=== PATIENT | male | born 1950 | race Caucasian/White ===

== ENCOUNTER 2017-08-18 20:14 | Inpatient (IN) | payer OTHER, MEDICARE ==
[~2017-08-18] VITALS: Ht 167.6 cm; Wt 75.9 kg
[2017-08-18] MEDS ORDERED: LORazepam 2 MG/ML, 1ML IVPush PRN (20:30)
[2017-08-18] MEDS ORDERED: PLEASE ENTER ALLERGIES MC SCH (20:30)
[2017-08-18 20:40] LABS: BASOPHILS # (AUTO) 0.04 x10^3/uL (0-0.1); BASOPHILS % (AUTO) 0 % (0-1); EOSINOPHILS # (AUTO) 0.02 x10^3/uL (0-0.4); EOSINOPHILS % (AUTO) 0 % (1-7); LYMPHOCYTES # (AUTO) 0.52 x10^3/uL (1-3.4); LYMPHOCYTES % (AUTO) 5 % (22-44); MD NO; MEAN CORPUSCULAR HEMOGLOBIN 32.2 pg (27.5-34.5); MEAN CORPUSCULAR HGB CONC 33.9 g/dL (33.2-36.2); MEAN PLATELET VOLUME 8.9 fL (7.4-10.4); MONOCYTES # (AUTO) 0.32 x10^3/uL (0.2-0.8); MONOCYTES % (AUTO) 3 % (2-9); NEUTROPHILS # (AUTO) 10.78 x10^3/uL (1.8-6.8); NEUTROPHILS % (AUTO) 92 % (42-75); PLATELET COUNT 193 x10^3/uL (130-400); RED BLOOD COUNT 5.22 x10^6/uL (4.38-5.82); RED CELL DISTRIBUTION WIDTH 13.2 % (9.4-14.8)
[2017-08-18 20:51] LABS: ALANINE AMINOTRANSFERASE 21 U/L (12-78); ALBUMIN 4.3 g/dL (3.4-5.0); ANION GAP 11 mmol/L (5-15); CALCIUM 8.7 mg/dL (8.5-10.1); CHLORIDE 108 mmol/L (98-107); CREATININE 1.21 mg/dL (0.7-1.3)
[2017-08-18 20:53] LABS: ALKALINE PHOSPHATASE 65 U/L (45-117); BILIRUBIN,TOTAL 1.3 mg/dL (0.2-1.0); TOTAL PROTEIN 8.3 g/dL (6.4-8.2)
[2017-08-18 20:54] LABS: INTERNATIONAL NORMALIZED RATIO 1.04 (0.93-1.1); PROTHROMBIN TIME 10.7 Seconds (9.6-11.5)
[2017-08-18] MEDS ORDERED: LORazepam 2 MG/ML, 1ML ONE (20:55)
[2017-08-18] MEDS ORDERED: SILD20TA2 PO (21:30)
[2017-08-18] MEDS ORDERED: OMEP-110 PO (21:30)
[2017-08-18] MEDS ORDERED: LEVETIRACETAM 1,000 MG in SODIUM CHLORIDE 0.9% 100 ML IV ONE ×2 (21:30→22:00)
[2017-08-18] MEDS ORDERED: FENO134C PO (21:30)
[2017-08-18] MEDS ORDERED: LOSA100T6 PO (21:30)
[2017-08-18] MEDS ORDERED: CARV3.122 PO (21:30)
[2017-08-18] MEDS ORDERED: LEVE500T8 PO (21:30)
[2017-08-18] MEDS ORDERED: ACETAMINOPHEN 325 MG TABLET PO PRN (22:30)
[2017-08-18] MEDS ORDERED: BISACODYL 10 MG SUPP PR PRN (22:30)
[2017-08-18] MEDS: CARVEDILOL 3.125 MG TABLET PO SCH (22:30)
[2017-08-18] MEDS ORDERED: POLYETHYLENE GLYCOL 17 GM PACKET PO PRN (22:30)
[2017-08-18] MEDS ORDERED: ONDANSETRON ODT 4 MG PO PRN (22:30)
[2017-08-18] MEDS: HEPARIN 5,000 UNITS/ML, 1ML SQ SCH (22:30)
[2017-08-18] MEDS: SODIUM CHLORIDE FLUSH 10ML SYR IVF SCH (23:24)
[2017-08-19 00:52] LABS: MICROSCOPIC INDICATED
[2017-08-19 00:59] LABS: CULTURE INDICATED? NO
[2017-08-19 06:12] LABS: BASOPHILS # (AUTO) 0.01 x10^3/uL (0-0.1); BASOPHILS % (AUTO) 0 % (0-1); EOSINOPHILS % (AUTO) 0 % (1-7); LYMPHOCYTES # (AUTO) 0.33 x10^3/uL (1-3.4); LYMPHOCYTES % (AUTO) 2 % (22-44); MD NO; MEAN CORPUSCULAR HEMOGLOBIN 32.2 pg (27.5-34.5); MEAN CORPUSCULAR VOLUME 94.8 fL (81-97); MONOCYTES # (AUTO) 0.72 x10^3/uL (0.2-0.8); MONOCYTES % (AUTO) 5 % (2-9); NEUTROPHILS # (AUTO) 14.86 x10^3/uL (1.8-6.8); NEUTROPHILS % (AUTO) 93 % (42-75); PLATELET COUNT 160 x10^3/uL (130-400); RED BLOOD COUNT 5.07 x10^6/uL (4.38-5.82); RED CELL DISTRIBUTION WIDTH 13.1 % (9.4-14.8)
[2017-08-19 06:23] LABS: ALBUMIN 3.7 g/dL (3.4-5.0); ANION GAP 8 mmol/L (5-15); CALCIUM 8.1 mg/dL (8.5-10.1); CHLORIDE 110 mmol/L (98-107)
[2017-08-19 06:27] LABS: ALANINE AMINOTRANSFERASE 19 U/L (12-78); ALKALINE PHOSPHATASE 53 U/L (45-117); BILIRUBIN,TOTAL 1.8 mg/dL (0.2-1.0); TOTAL PROTEIN 7.1 g/dL (6.4-8.2)
[2017-08-19] MEDS: HEPARIN 5,000 UNITS/ML, 1ML SQ SCH ×4 (06:30→21:35)
[2017-08-19] MEDS: FENOFIBRATE 145 MG TABLET PO SCH (08:49)
[2017-08-19] MEDS: SENNA/DOCUSATE TABLET PO SCH (08:51)
[2017-08-19] MEDS: OMEPRAZOLE 20 MG CAPSULE.DR PO SCH (08:52)
[2017-08-19] MEDS: LOSARTAN 50MG TABLET PO SCH (08:52)
[2017-08-19] MEDS: CARVEDILOL 3.125 MG TABLET PO SCH ×2 (08:52→20:51)
[2017-08-19] MEDS: SODIUM CHLORIDE FLUSH 10ML SYR IVF SCH ×2 (09:00→20:50)
[2017-08-19 16:17] VITALS: BP 99/64
[2017-08-19 20:00] VITALS: BP 102/55
[2017-08-19] MEDS: LEVETIRACETAM 100 MG/ML ORAL SOL PO SCH (20:51)
[2017-08-20 02:00] VITALS: BP 115/71
[2017-08-20 06:40] VITALS: BP 110/65
[2017-08-20 09:30] LABS: MEAN CORPUSCULAR HEMOGLOBIN 32.1 pg (27.5-34.5); MEAN CORPUSCULAR HGB CONC 33.7 g/dL (33.2-36.2); MEAN CORPUSCULAR VOLUME 95.2 fL (81-97); MEAN PLATELET VOLUME 8.8 fL (7.4-10.4); PLATELET COUNT 162 x10^3/uL (130-400); RED BLOOD COUNT 4.83 x10^6/uL (4.38-5.82); RED CELL DISTRIBUTION WIDTH 13.4 % (9.4-14.8)
[2017-08-20 09:52] LABS: BASOPHILS # (AUTO) 0.01 x10^3/uL (0-0.1); BASOPHILS % (AUTO) 0 % (0-1); EOSINOPHILS % (AUTO) 0 % (1-7); LYMPHOCYTES # (AUTO) 0.57 x10^3/uL (1-3.4); LYMPHOCYTES % (AUTO) 6 % (22-44); MD SCAN; MONOCYTES % (AUTO) 6 % (2-9); NEUTROPHILS % (AUTO) 88 % (42-75)
[2017-08-20] MEDS: SENNA/DOCUSATE TABLET PO SCH (10:05)
[2017-08-20] MEDS: OMEPRAZOLE 20 MG CAPSULE.DR PO SCH (10:05)
[2017-08-20] MEDS: CARVEDILOL 3.125 MG TABLET PO SCH (10:05)
[2017-08-20] MEDS: LOSARTAN 50MG TABLET PO SCH (10:05)
[2017-08-20] MEDS: SODIUM CHLORIDE FLUSH 10ML SYR IVF SCH (10:05)
[2017-08-20] MEDS: FENOFIBRATE 145 MG TABLET PO SCH (10:06)
[2017-08-20] MEDS: LEVETIRACETAM 100 MG/ML ORAL SOL PO SCH (11:03)
[2017-08-20 12:09] VITALS: BP 108/70
[2017-08-20] MEDS ORDERED: LEVE500T8 PO (13:10)
== END 2017-08-20 15:11 | disposition home or self-care (01) | DRG 101 ==
LOC: ED 22:27 → EDIP 23:16 → 4EST 08-19 16:08 → DCLOUNGE 08-20 15:11
PROVIDERS: ADMIT Hospitalist; ATTEND Hospitalist
DX: G40.401 Other generalized epilepsy and epileptic syndromes, not intractable, with status epilepticus (principal); D72.829 Elevated white blood cell count, unspecified; J98.11 Atelectasis; E78.5 Hyperlipidemia, unspecified; I10 Essential (primary) hypertension; K21.9 Gastro-esophageal reflux disease without esophagitis; R00.0 Tachycardia, unspecified
CPT/HCPCS: 36415; 70450; 71045; 71046; 80053; 80307; 81001; 82140; 85025; 85610; 85730; 93005; 95819; 99285; J1953; J2060

== ENCOUNTER 2020-09-13 08:00 | Day surgery (SDC) | payer BC ==
[~2020-09-13] VITALS: Ht 167.6 cm; Wt 85.6 kg
[~2020-09-13 08:00] MED LIST: BUPIVACAINE/PF 0.5% ONE; CARV3.122 PO; EPINEPHRINE 1 MG/ML, 1ML ONE; FENO134C PO; LEVE500T8 PO; LOSA100T14 PO; OMEP-110 PO; SILD20TA2 PO
[2020-09-13] MEDS ORDERED: INDOCYANINE GREEN 25 MG VIAL ONE (08:18)
[2020-09-13 08:30] VITALS: BP 166/88
[2020-09-13 08:37] VITALS: BP 166/88
[2020-09-13] MEDS ORDERED: AMLODIPINE PO (08:45)
[2020-09-13] MEDS ORDERED: [UNRECOGNIZED DRUG - OTHER] PO (08:45)
[2020-09-13] MEDS ORDERED: VACEPA PO (08:45)
[2020-09-13] MEDS ORDERED: FENTANYL PF 100 MCG/2ML IV PRN (09:00)
[2020-09-13] MEDS ORDERED: ACETAMINOPHEN 325 MG TABLET PO PRN (09:00)
[2020-09-13] MEDS ORDERED: INDOCYANINE GREEN 25 MG VIAL IV ONE (09:00)
[2020-09-13] MEDS ORDERED: LACTATED RINGERS 1,000 ML IV SCH (09:00)
[2020-09-13] MEDS ORDERED: OXYcodone 5 MG/5 ML ORAL.SOL UDC PO PRN (09:00)
[2020-09-13] MEDS ORDERED: HYDROmorphone 1 MG/ML, 1ML INJ IVPush PRN (09:00)
[2020-09-13] MEDS ORDERED: ONDANSETRON 2MG/ML, 2ML IVPush PRN (09:00)
[2020-09-13] MEDS ORDERED: LABETALOL 5MG/ML, 20ML IV PRN (09:00)
[2020-09-13] MEDS ORDERED: CHLORHEXIDINE 15 ML UDC PO ONE (09:00)
[2020-09-13] MEDS ORDERED: PROMETHAZINE 25 MG/ML, 1ML IVPush PRN (09:00)
[2020-09-13] MEDS ORDERED: MEPERIDINE/PF 25MG/0.5ML IVPush PRN (09:00)
[2020-09-13] MEDS ORDERED: hydrALAzine 20 MG/ML, 1ML IV PRN (09:00)
[2020-09-13 09:07] LABS: ALANINE AMINOTRANSFERASE 27 U/L (12-78); ALBUMIN 4.5 g/dL (3.4-5.0); ANION GAP 5 mmol/L (5-15); CHLORIDE 112 mmol/L (98-107); CREATININE 0.88 mg/dL (0.7-1.3)
[2020-09-13 09:09] LABS: ALKALINE PHOSPHATASE 67 U/L (45-117); BILIRUBIN,TOTAL 1.2 mg/dL (0.2-1.0)
[2020-09-13] MEDS ORDERED: KEPRA PO (09:09)
[2020-09-13] MEDS ORDERED: MIDAZOLAM 1 MG/ML, 2ML ONE (10:00)
[2020-09-13] MEDS ORDERED: FENTANYL PF 250 MCG/5ML ONE (10:00)
[2020-09-13] MEDS ORDERED: CEFOTETAN 2 GM ONE (10:53)
[2020-09-13] MEDS ORDERED: PROPOFOL 10 MG/ML, 20ML ONE (10:56)
[2020-09-13] MEDS ORDERED: ROCURONIUM 10MG/ML,5ML ONE (11:01)
[2020-09-13] MEDS ORDERED: DEXAMETHASONE 4 MG/ML, 5ML ONE (11:01)
[2020-09-13] MEDS ORDERED: ONDANSETRON 2MG/ML, 2ML ONE (11:02)
[2020-09-13] MEDS ORDERED: KETOROLAC 30 MG/1 ML ONE (11:02)
[2020-09-13] MEDS ORDERED: OMNIPAQUE 350 MG/ML, 50 ML BOTTLE ONE (11:35)
[2020-09-13] MEDS ORDERED: HYDR-2214 PO (13:09)
[2020-09-13] MEDS ORDERED: ONDA4TAB7 PO (13:09)
== END 2020-09-13 16:07 | disposition home or self-care (01) ==
LOC: OUT 08:00
PROVIDERS: ATTEND Surgery
DX: K80.10 Calculus of gallbladder with chronic cholecystitis without obstruction (principal); I10 Essential (primary) hypertension; E78.5 Hyperlipidemia, unspecified; I69.398 Other sequelae of cerebral infarction; G40.909 Epilepsy, unspecified, not intractable, without status epilepticus; K21.9 Gastro-esophageal reflux disease without esophagitis; Z20.822 Contact with and (suspected) exposure to COVID-19; Z79.899 Other long term (current) drug therapy
CPT/HCPCS: 36415; 47563; 74300; 80053; 87635; 88304; 93005; J0171; J1100; J1885; J2250; J2405; J2704; J3010; J7120; Q9967